=== PATIENT | female | born 1945 | race Asian ===

== ENCOUNTER → 2018-07-24 09:06 | Outpatient (CLI) | payer MEDICARE, OTHER, SELFPAY ==
--- NOTE | 2018-07-24 09:43 | DI.CT.S_ITS ---
PROCEDURE: CT ABDOMEN PELVIS WO/W CON INDICATIONS: Other specified disorders of kidney and ureter TECHNIQUE: Optional 5 mm thick noncontrast images acquired from the diaphragm to the symphysis pubis. After the administration of intravenous contrast, 5 mm thick images acquired from the diaphragm to the symphysis pubis after a 10-minute delay. 2 mm thick coronal and sagittal reformats were then performed of the kidneys and ureters. For radiation dose reduction, the following was used: automated exposure control, adjustment of mA and/or kV according to patient size. COMPARISON: None. FINDINGS: Image quality: Excellent. Lung bases: Lung bases are clear. Heart size is normal. Urinary system: Both kidneys are normal in size, without hydronephrosis or nephrolithiasis on pre-contrast images. No perinephric fat stranding. There is normal bilateral renal enhancement. There are bilateral low density cortical lesions consistent with simple renal cysts. A 3 mm in diameter hyperdense lesion is noted on the noncontrast study within the upper pole the right kidney. There is no appreciable enhancement on the postcontrast images suggesting a hyperdense cyst. A 1.5 cm in diameter hyperdense cyst is also present within the midpole of the left kidney. This demonstrates 39 Hounsfield units on the precontrast study and 40 Hounsfield units on the postcontrast study. Renal calyces appear normal in morphology when filled with contrast. Opacified portions of both ureters demonstrate normal caliber. Bladder wall thickness is normal. No calcified bladder stones. Other solid organs: Liver is normal in size and enhancement. A 6 mm hypodense focus is present within the left hepatic lobe suggesting a simple hepatic cyst. Gallbladder is unremarkable. Biliary system is non dilated. Pancreas enhances normally. Spleen is normal in size and enhancement. No adrenal nodules. Peritoneum and bowel: Bowel loops demonstrate normal wall thickness and caliber. The appendix is thin walled. There are scattered sigmoid diverticula. No evidence for diverticulitis. No free fluid or air. Nodes and vessels: No retroperitoneal or mesenteric adenopathy by size criteria. Aorta and inferior vena cava are normal in size. There are scattered atheromatous calcifications throughout the aorta and iliac arteries bilaterally. Abdominal wall: No ventral hernias. Pelvis: No pathologic free pelvic fluid. No inguinal hernias or adenopathy. Bones: No suspicious bony lesions. No vertebral body compression fractures. IMPRESSION: 1. No hydronephrosis, hydroureter, ureterolithiasis, or nephrolithiasis. Bilateral hyperdense cysts as above. 2. No acute intra-abdominal findings. Normal appendix. Diverticulosis. No acute diverticulitis. Dictated by: Ana Maria Bear M.D. on 07/24/2018 at 11:30 Approved by: Ana Maria Bear M.D. on 07/24/2018 at 11:37
[2018-07-24 09:55] LABS: Blood Urea Nitrogen 12 mg/dL (7-17); Calcium 9.6 mg/dL (8.4-10.2); Carbon Dioxide 29 mmol/L (22-32); Chloride 103 mmol/L (98-107); Estimated Glomerular Filt Rate 54.5 mL/min (>60); Glucose 81 mg/dL (80-110); HEMOLYSIS < 15 (0-50); Potassium 4.5 mmol/L (3.4-5.1); Sodium 141 mmol/L (137-145)
== END ==
PROVIDERS: Visit Provider Urology
DX: N28.89 Other specified disorders of kidney and ureter (principal); K57.30 Diverticulosis of large intestine without perforation or abscess without bleeding; N28.1 Cyst of kidney, acquired
CPT/HCPCS: 36415; 74178; 80048; Q9967

== ENCOUNTER → 2021-01-27 14:28 | Outpatient (CLI) | payer MEDICARE, OTHER, SELFPAY ==
--- NOTE | 2021-01-27 | DI.MRI.S_ITS ---
PROCEDURE: MR LUMBAR SPINE WO CON INDICATIONS: low back pain, unspecified TECHNIQUE: Noncontrast sagittal T1 spin echo and T2 fast echo, sagittal STIR, axial T1 and T2 fast spin echo through the lumbar spine. In cases with scoliosis, additional coronal T2 fast spin echo may be performed. COMPARISON: None. FINDINGS: Image quality: Excellent. Alignment and Curvature: No plain films are available for comparison, for numbering purposes. Thus, for the purposes of this examination, 5 lumbar type vertebral bodies will be presumed, as denoted on the montage panel. This should be confirmed and correlated with plain films, prior to any lumbar spinal intervention. Bone Marrow: Marrow is of normal overall signal. No acute vertebral body compression fractures. Mild reactive signal throughout the endplates of the lumbar and lower thoracic spine. Spinal Cord: Conus medullaris terminates at the L1-L2 disc space level. Visualized cord demonstrates normal signal and size. Paraspinous Soft Tissues: No paravertebral masses. T12-L1: Mild disc height loss and desiccation. Mild diffuse disc bulge. Mild canal stenosis. No foraminal stenosis. L1-L2: Mild disc height loss and desiccation. Mild diffuse disc bulge. Mild facet and ligamentum flavum hypertrophy. Mild canal stenosis. Mild bilateral foraminal stenosis. L2-L3: Mild disc height loss and desiccation. Mild diffuse disc bulge. Mild facet and ligamentum flavum hypertrophy. Mild canal stenosis. Mild bilateral foraminal stenosis. L3-L4: Mild disc desiccation and diffuse disc bulge. Mild facet and ligamentum flavum hypertrophy. Mild epidural lipomatosis. Mild canal stenosis. Mild bilateral foraminal stenosis. L4-L5: Mild disc desiccation and diffuse disc bulge. Mild facet and moderate ligamentum flavum hypertrophy. Moderate canal stenosis. Mild bilateral foraminal stenosis. L5-S1: Moderate disc desiccation. Mild diffuse disc bulge. Mild facet and ligamentum flavum hypertrophy. Mild canal stenosis. Mild bilateral foraminal stenosis. IMPRESSION: 1. Multilevel degenerative disc and facet disease, as well as ligamentum flavum hypertrophy and epidural lipomatosis. 2. Multilevel canal stenoses, worst at L4-L5, where there is moderate canal stenosis. 3. Mild multilevel foraminal stenoses. 4. 5 lumbar type vertebral bodies were presumed for the current report. Plain films of the lumbar spine are recommended for confirmation, prior to any lumbar spinal intervention. Dictated by: Marquis Kang M.D. on 01/27/2021 at 15:54 Approved by: Marquis Kang M.D. on 01/27/2021 at 16:46
== END ==
PROVIDERS: Referring Provider Internal Medicine; Visit Provider Internal Medicine
DX: M51.36 Other intervertebral disc degeneration, lumbar region (principal); M51.37 Other intervertebral disc degeneration, lumbosacral region; M48.061 Spinal stenosis, lumbar region without neurogenic claudication; M48.07 Spinal stenosis, lumbosacral region; M54.50 Low back pain, unspecified
CPT/HCPCS: 72148

== ENCOUNTER → 2021-02-19 07:29 | Outpatient (CLI) | payer MEDICARE, OTHER, SELFPAY ==
--- NOTE | 2021-02-19 07:32 | DI.MRI.S_ITS ---
PROCEDURE: MR CERVICAL SPINE WO CON INDICATIONS: Cervicalgia TECHNIQUE: Noncontrast sagittal T1 spin echo and T2 fast spin echo, sagittal STIR, foraminal oblique sagittal T2 fast spin echo, and axial gradient echo or T2 fast spin echo through the cervical spine. COMPARISON: None. FINDINGS: Image quality: Excellent. Alignment and Curvature: There is normal bony alignment. Bone Marrow: Marrow demonstrates normal overall signal. Spinal Cord: Visualized spinal cord has normal size and signal. No cerebellar tonsillar herniation. Paraspinous Soft Tissues: No paravertebral masses. Prevertebral soft tissues are normal in thickness. C2-C3: Loss of disc signal. No central stenosis. No neural foraminal narrowing. No neural compression. C3-C4: Loss of disc signal. Mild, diffuse disc bulge. No central stenosis. No neural foraminal narrowing. No neural compression. C4-C5: Loss of disc signal. Mild to moderate diffuse disc bulge. Moderate narrowing of the central canal. Moderate right and mild left neural foraminal narrowing. No neural compression. C5-C6: Loss of disc signal. Mild to moderate diffuse disc bulge. Mild right uncovertebral joint hypertrophy. Moderate narrowing of the central canal. Severe right and mild left neural foraminal narrowing with compression of the exiting right C6 nerve root. C6-C7: Loss of disc signal. Mild to moderate diffuse disc bulge. [id number] narrowing of the central canal. No neural foraminal narrowing. No neural compression. C7-T1: Loss of disc signal. No central stenosis. No neural foraminal narrowing. No neural compression. IMPRESSION: 1. Multilevel degenerative disc disease. 2. Right C5-C6 uncovertebral arthropathy. 3. No severe central canal narrowing. 4. Severe right C5-C6 neural foraminal narrowing with compression of the exiting right C6 nerve root. Dictated by: Queenie Argueta MD, PhD on 02/21/2021 at 8:09 Approved by: Queenie Argueta MD, PhD on 02/21/2021 at 10:01
== END ==
PROVIDERS: PCP Internal Medicine; Referring Provider Internal Medicine; Visit Provider Internal Medicine
DX: M50.31 Other cervical disc degeneration, high cervical region (principal); M48.02 Spinal stenosis, cervical region; M47.812 Spondylosis without myelopathy or radiculopathy, cervical region
CPT/HCPCS: 72141

== ENCOUNTER 2022-11-17 07:32 | Emergency (ER) | payer OTHER, SELFPAY ==
[2022-11-17 07:41] VITALS: BP 142/71; PULSE 73; RESP 18; TEMP 37.7; O2SAT 98; BMI 27.8
[2022-11-17 08:33] LABS: Influenza A - CEPHEID Flu A NEGATIVE (NEGATIVE); Influenza B - CEPHEID Flu B NEGATIVE (NEGATIVE); Respiratory Syncytial Virus Negative (Negative)
[2022-11-17 08:34] LABS: COVID-19 CEPHEID 4-PLEX PCR POSITIVE (Negative)
--- NOTE | 2022-11-17 09:04 | ED_ITS ---
HPI - URI/Sore Throat General Chief Complaint: Upper Respiratory Symptoms Stated Complaint: T-3 cough/Lt arm hurt Time Seen by Provider: 11/17/22 08:55 Source: patient Mode of arrival: Family Vehicle History of Present Illness HPI Narrative: Patient here for dry cough for the past 3 days. No known sick contacts. Patient denies any previous lung diseases. No asthma no COPD emphysema. Patient does not smoke. No fever chills but does have body aches. Also complains 3 months of neck pain that radiates to the left elbow. No weakness. Pain radiates to the chest as well. No exertional chest pain or dyspnea. Increased pain with rotating her neck. It does radiate to the left elbow. No hand numbness tingling or weakness. Patient denies any previous neck surgery or MRI. [place]. Denies any shoulder or elbow pain. Related Data Previous Rx's Medication Instructions Recorded benzonatate 100 mg capsule 100 mg PO TID PRN cough #20 caps 11/17/22 Allergies Allergy/AdvReac Type Severity Reaction Status Date / Time No Known Drug Allergies Allergy Verified 11/17/22 07:44 Review of Systems Review of Systems Narrative: GENERAL: negative chills, positive fatigue, malaise, negative fever, sweats. HEENT: negative sinus pain, ear pain, sore throat RESPIRATORY: negative dyspnea, positive cough CARDIOVASCULAR: negative chest pain, palpitations GASTROINTESTINAL: negative nausea, vomiting, abdominal pain : negative dysuria, frequency, hematuria MUSCULOSKELETAL: Positive muscle or bony pain SKIN: negative rash, skin lesions NEUROLOGIC: negative weakness, positive numbness ROS Unobtainable: All systems reviewed & are unremarkable except as noted in HPI and below Patient History Social History Smoking Status: Never smoker Smoking Status: Never smoker alcohol intake frequency: 0-2 drinks per day Substance Use Type: does not use Exam Narrative Exam Narrative: GENERAL: in no distress, not toxic not dyspneic HEAD: Normocephalic. EYES: Pupils equal round ENT: Mucous membranes moist. NECK: Trachea midline. No midline tenderness or step-off. But when patient gives a cough hurts her neck and it radiates down her left arm. Full active range of motion. CARDIOVASCULAR: Regular rate and rhythm RESPIRATORY: Clear to auscultation. Breath sounds equal bilaterally. No wheezes, rales, or rhonchi. GASTROINTESTINAL: Abdomen soft, non-tender EXTREMITIES: No gross deformities. Examination left upper extremity. Nontender elbow shoulder wrist. 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 Able to bring her hand above her head fully without distress. When she does give a hard cough hurts her neck and does radiate down her left arm. Does not extend past the elbow. Arm is warm soft and pink. BACK: No flank tenderness. NEURO: AOx4. SKIN: Warm and dry PSYCH: Not anxious, is cooperative Initial Vital Signs Initial Vital Signs: Vital Signs Temperature 99.9 F H 11/17/22 07:41 Pulse Rate 73 11/17/22 07:41 Respiratory Rate 18 11/17/22 07:41 Blood Pressure 142/71 H 11/17/22 07:41 Pulse Oximetry 98 11/17/22 07:41 Oxygen Delivery Method Room Air 11/17/22 07:41 Course Orders Ordered: Discontinued Medications Benzonatate (Benzonatate 100 Mg Capsule) 100 mg PO NOW ONE Stop: 11/17/22 09:05 Last Admin: 11/17/22 09:25 Dose: 100 mg Documented By: AMV Vital Signs Vital signs: Vital Signs - 8 hr 11/17/22 07:41 Temperature 99.9 F H Pulse Rate 73 Respiratory Rate 18 Blood Pressure 142/71 H Pulse Oximetry 98 Oxygen Delivery Method Room Air MDM - URI/Sore Throat Lab Data Labs: Lab Results 11/17/22 Range/Units 07:45 SARS-CoV-2 (PCR) Positive H (Negative) Influenza A (RT-PCR) Flu a negative (NEGATIVE) Influenza B (RT-PCR) Flu b negative (NEGATIVE) RSV (PCR) Negative (Negative) MDM Narrative Medical decision making narrative: Patient here for dry cough for the past 3 days. No known sick contacts. Patient denies any previous lung diseases. No asthma no COPD emphysema. Patient does not smoke. No fever chills but does have body aches. Also complains 3 months of neck pain that radiates to the left elbow. No weakness. Pain radiates to the chest as well. No exertional chest pain or dyspnea. Increased pain with rotating her neck. It does radiate to the left elbow. No hand numbness tingling or weakness. Patient denies any previous neck surgery or MRI. [place]. Denies any shoulder or elbow pain. After history and exam Itzel Saenz, x-ray blood work indicated at this time. Patient is positive for COVID on viral swab. No imaging of the neck or arm indicated this time. This ongoing 3 months prior to patient's recent illness and needs outpatient follow up for MRI of cervical spine likely cervical radiculopathy. MDM CC: Cough Complicating co-morbidities: None Data collected from: Patient Medical records reviewed: No recent visit for this complaint Differential considered: Includes but not limited to upper respiratory infection cervical radiculopathy Exam documented above, pertinent findings include: Clear lung sounds, reproducible neck pain with hard coughing that radiates to the left arm Lab Test results independently reviewed as above. Pertinent findings: COVID positive Treatments: Itzel Cole Re-evaluations: Reviewed exam findings with patient. At this time no blood work or imaging indicated. Patient needs outpatient MRI cervical spine. This is ongoing before patient's recent illness. She does understand. Return precautions reviewed with her. She desires discharge home Discussion: Appropriate for discharge home. Exam is reassuring. No blood work or imaging indicated. Vital signs are reassuring. No dyspnea no hypoxia no tachypnea not requiring supplemental oxygen. No medications indicated for COVID. Patient needs outpatient MRI of the cervical spine given ongoing radiculopathy symptoms. Reviewed this with her. She agrees with treatment plan. Return precautions reviewed with her. She desires discharge home. Not t oxic or dyspneic at discharge. Diagnosis: Cervical radiculopathy/COVID-19 bronchitis Discharge Plan Departure Patient Disposition: Home Clinical Impression: COVID-19, Bronchitis Instructions: DI for Cervical Radiculopathy, DI for COVID-19 (Suspected or Confirmed ) Activity Restrictions/Additional Instructions: Please continue quarantine total 5 days from 1st day of your symptoms. See family doctor in a week for re-evaluation. You will need MRI of your cervical spine regarding your neck pain that radiates to your left arm. Cough medication has been provided for you. At this time no x-ray blood work indicated. Your lung sounds are clear. Your oxygen levels are appropriate. Return if worse if any questions or concerns. Prescriptions: New benzonatate 100 mg capsule 100 mg PO TID PRN (Reason: cough) Qty: 20 0RF Referrals: Mary Powell MD [Primary Care Provider] - Stand Alone Forms: Patient Portal/API
[2022-11-17] MEDS: BENZONATATE 100 MG CAPSULE PO (09:25)
== END 2022-11-17 09:30 | disposition home or self-care (01) ==
PROVIDERS: Emergency Provider Emergency Medicine; PCP Internal Medicine
DX: U07.1 COVID-19 (principal); J40 Bronchitis, not specified as acute or chronic
CPT/HCPCS: 0241U; 99283

== ENCOUNTER → 2023-04-26 10:15 | Outpatient (CLI) | payer MEDICARE, OTHER, SELFPAY ==
--- NOTE | 2023-04-26 10:18 | DI.MRI.S_ITS ---
PROCEDURE: MR SHOULDER LT WO CON INDICATIONS: Pain in left shoulder TECHNIQUE: Noncontrast oblique coronal T2 fast spin echo with fat saturation, oblique sagittal T1 spin echo and T2 fast spin echo with fat saturation, axial T1 spin echo and T2 fast spin echo with fat saturation through the shoulder. COMPARISON: None. FINDINGS: Image quality: Excellent. Rotator cuff: Full-thickness tearing of the supraspinatus tendon and the anterior fibers of the infraspinatus tendon at their distal insertions measuring 1.6 cm in anterior-posterior dimension with proximal tendon retraction measuring up to 2.9 cm. There is mild loss of supraspinatus muscle bulk without significant fatty infiltration. Infraspinatus muscle appears to be intact. The teres minor tendon is intact. There is full-thickness, partial width tearing of the subscapularis tendon superiorly with proximal tendon retraction measuring up to 1.6 cm. No significant subscapularis atrophy. Bones and bursae: No acute trabecular bone injury or fracture. Chronic traction cystic changes are seen at the posterior superior humeral head. There is mild degenerative spurring in the glenoid rim. Moderate degenerative changes are seen at the acromioclavicular joint with subchondral cystic changes and marginal osteophyte formation. A small amount of fluid in the subacromial/subdeltoid bursa communicates with the glenohumeral joint space. Capsule and soft tissues: There is diffuse labral degeneration and chronic degenerative tearing. Proximal biceps long head tendon is not visualized and is most likely chronically torn and distally retracted. Glenohumeral ligaments appear to be intact. IMPRESSION: 1. Full-thickness tearing of the supraspinatus tendon and the anterior fibers infraspinatus tendon measuring 1.6 cm in anterior-posterior dimension with up to 2.9 cm of proximal tendon retraction. Mild supraspinatus muscle atrophy. 2. Full-thickness, partial width tearing of the subscapularis tendon at the superior insertion with proximal tendon retraction measuring up to 1.6 cm. 3. Complete tearing and distal retraction of the biceps long head tendon. 4. Moderate acromioclavicular joint osteoarthrosis. 5. Small subacromial/subdeltoid bursal effusion communicates with the glenohumeral joint space. Approved by: Crispin Salinas M.D. on 04/26/2023 at 16:33
== END ==
PROVIDERS: PCP Internal Medicine; Referring Provider Nurse Practitioner Family; Visit Provider Nurse Practitioner Family
DX: M75.122 Complete rotator cuff tear or rupture of left shoulder, not specified as traumatic (principal); S46.112A Strain of muscle, fascia and tendon of long head of biceps, left arm, initial encounter; M25.512 Pain in left shoulder; M19.012 Primary osteoarthritis, left shoulder; M25.412 Effusion, left shoulder
CPT/HCPCS: 73221

== ENCOUNTER → 2023-05-04 14:04 | Outpatient (CLI) | payer MEDICARE, OTHER, SELFPAY ==
--- NOTE | 2023-05-04 14:07 | DI.RAD.S_ITS ---
Bone Density Report Name: MARY GRIJALVA Age: 77 Sex: Female Ethnicity: Marsha Date of : 1945 Indication: postmenopausal; screening for osteoporosis; Referring Provider: MARSHALL NGUYEN Study: Bone densitometry was performed. Exam Date: May 04, 2023 Accession number: [id number] Bone Density: Region BMD T-score Z-score Classification AP Spine(L1-L4) 0.832 -2.0 0.6 Osteopenia Femoral Neck (Left) 0.516 -3.0 -0.8 Osteoporosis Total Hip (Left) 0.650 -2.4 -0.5 Osteopenia Femoral Neck (Right) 0.559 -2.6 -0.4 Osteoporosis Total Hip (Right) 0.679 -2.2 -0.2 Osteopenia Total Hip Mean 0.664 -2.3 -0.4 Osteopenia World Health Organization criteria for BMD impression classify patients as: Normal (T-score at or above -1.0), Osteopenia (T-score between -1.0 and -2.5), or Osteoporosis (T-score at or below -2.5). 10-year Fracture Risk: FRAX not reported because: Some T-score for Spine Total or Hip Total or Femoral Neck at or below -2.5 Impression: The patient has osteoporosis, based on the Left Femoral Neck T-score. Discussion: INCREASED RISK OF FRACTURE. BONE DENSITY IS UNDESIRABLY LOW AT ONE OR MORE SKELETAL SITES, CONSISTENT WITH POSTMENOPAUSAL OSTEOPOROSIS. This patient's lowest T-score meets the World Health Organization's (WHO) criteria for osteoporosis at one or more sites (T-score -2.5 or below). In untreated patients, the risk of osteoporotic fracture increases approximately two-fold for each 1.0 SD decrease in T-score. Low bone density is not the only risk factor for fracture; also consider factors such as patient's age, frailty or poor health, risk of falling, risk of injury, previous osteoporotic fracture, family history of osteoporosis, cigarette smoking, low body weight, etc. Not everyone with low bone mineral density has osteoporosis; osteomalacia and other metabolic bone disorders should also be considered. Patients who have osteoporosis should be evaluated for specific diseases and conditions (secondary causes) that may cause or contribute to bone loss. The [place] [employer]ocrinologists (AACE) and National Osteoporosis Foundation (NOF) recommend pharmacologic intervention for all postmenopausal women whose T-score is in this range. The patient should follow a healthful lifestyle (good nutrition with adequate calcium and vitamin D, and appropriate weight-bearing exercise). Follow-Up: Consider a repeat BMD and Vertebral Fracture Assessment (VFA) exam in 2 years or sooner if medically necessary, to reassess this patient's status. Reported by: LORELEI MOORE M.D. on 05/04/2023 3:58:00 PM.
== END ==
PROVIDERS: PCP Internal Medicine; Referring Provider Nurse Practitioner Family; Visit Provider Nurse Practitioner Family
DX: M81.0 Age-related osteoporosis without current pathological fracture (principal); Z13.820 Encounter for screening for osteoporosis; Z78.0 Asymptomatic menopausal state
CPT/HCPCS: 77080

== ENCOUNTER 2023-10-12 08:58 | Emergency (ER) | payer MEDICARE, OTHER, SELFPAY ==
[2023-10-12 09:04] VITALS: BP 154/77; PULSE 78; RESP 16; TEMP 36.9; O2SAT 98; BMI 29.2
--- NOTE | 2023-10-12 09:09 | DI.RAD.S_ITS ---
PROCEDURE: XR ELBOW RT MIN 3V INDICATIONS: fall pain and swelling in elbow TECHNIQUE: 3 views of the elbow were acquired. COMPARISON: None. FINDINGS: Bones: No fractures or dislocations. No suspicious bony lesions. Soft tissues: Small elbow joint effusion. No suspicious soft tissue calcifications. IMPRESSION: No definite fracture is seen. A small joint effusion is seen raising concern for an occult fracture. Recommend short-term follow-up radiograph. Dictated by: Marvin Perez M.D. on 10/12/2023 at 10:24 Approved by: Marvin Perez M.D. on 10/12/2023 at 10:25
--- NOTE | 2023-10-12 09:10 | DI.RAD.S_ITS ---
PROCEDURE: XR RIBS RT MIN 3V W CXR 1V INDICATIONS: fall with pain to R ribs TECHNIQUE: 2 views of the ribs were acquired, along with a single view chest. COMPARISON: None. FINDINGS: Surgical changes and devices: None. Bones and chest wall: No fractures or dislocations. No suspicious bony lesions. Overlying soft tissues appear unremarkable. Lungs and pleura: No pleural effusions or pneumothorax. Lungs appear clear. Mediastinum: Mediastinal contours appear normal. Heart size is normal. IMPRESSION: No displaced rib fracture or pneumothorax. Dictated by: Marvin Perez M.D. on 10/12/2023 at 10:25 Approved by: Marvin Perez M.D. on 10/12/2023 at 10:28
--- NOTE | 2023-10-12 09:36 | DI.RAD.S_ITS ---
PROCEDURE: XR KNEE RT 3V INDICATIONS: fall,knee and foot pain TECHNIQUE: 3 views of the knee were acquired. COMPARISON: None. FINDINGS: Bones: No fractures or dislocations. Osteoarthritic changes of the knee, severe involving the medial and patellofemoral compartments. No suspicious bony lesions. Soft tissues: No joint effusion. No suspicious soft tissue calcifications. IMPRESSION: No acute bony abnormality or significant effusion. Severe osteoarthritic changes of the knee. Dictated by: Marvin Perez M.D. on 10/12/2023 at 10:58 Approved by: Marvin Perez M.D. on 10/12/2023 at 10:59
--- NOTE | 2023-10-12 09:36 | DI.RAD.S_ITS ---
PROCEDURE: XR FOOT RT MIN 3V INDICATIONS: fall,knee and foot pain TECHNIQUE: 3 views of the foot were acquired. COMPARISON: None. FINDINGS: Bones: No fractures or dislocations. Mild diffuse interphalangeal joint degeneration. Mild posterior and plantar calcaneal enthesophytes. No suspicious bony lesions. Soft tissues: No tibiotalar joint effusion. Achilles tendon appears normal. IMPRESSION: No acute bony abnormality. Dictated by: Marvin Perez M.D. on 10/12/2023 at 10:51 Approved by: Marvin Perez M.D. on 10/12/2023 at 10:58
[2023-10-12 09:54] VITALS: PULSE 66; O2SAT 98
[2023-10-12 09:55] VITALS: BP 149/72; PULSE 61; O2SAT 99
[2023-10-12 10:00] VITALS: PULSE 60; RESP 17; O2SAT 99
--- NOTE | 2023-10-12 10:57 | ED.FALL ---
HPI - Fall General Chief Complaint: Fall Stated Complaint: fall t-1, back/l side pain, L knee/toe swelling Time Seen by Provider: 10/12/23 10:38 History of Present Illness HPI Narrative: Patient is a 78-year-old female history of hypertension hyperlipidemia presenting today with ground level fall yesterday. She reports that she tripped and fell landing mostly on her right side. She was trying to protect her left side she had a mammogram the other day she has getting a cardiac workup as an outpatient. She denies any sort of chest pain or palpitations. Complaining of all right-sided pain and injuries. She denies hitting her head or lose consciousness not on antiplatelet or anticoagulation medication. She complains of right rib pain, elbow pain, knee pain, foot pain. She has also been to the restroom twice in the last 1 hour. She denies painful frequent urination although she does have some urinary frequency she denies any fever chills or abdominal pain. Related Data Previous Rx's Medication Instructions Recorded benzonatate 100 mg capsule 100 mg PO TID PRN cough #20 caps 11/17/22 hydrocodone 5 mg-acetaminophen 325 1 tab PO Q6H PRN pain #10 tabs 10/12/23 mg tablet Allergies Allergy/AdvReac Type Severity Reaction Status Date / Time No Known Drug Allergies Allergy Verified 11/17/22 07:44 Patient History Social History Smoking Status: Never smoker Smoking Status: Never smoker alcohol intake frequency: 0-2 drinks per day Substance Use Type: does not use Exam Initial Vital Signs Initial Vital Signs: Vital Signs Temperature 98.4 F 10/12/23 09:04 Pulse Rate 78 10/12/23 09:04 Respiratory Rate 16 10/12/23 09:04 Blood Pressure 154/77 H 10/12/23 09:04 Pulse Oximetry 98 10/12/23 09:04 Oxygen Delivery Method Room Air 10/12/23 09:04 GENERAL: Alert pleasant well-appearing 70-year-old female and in no acute distress. HEENT: Head atraumatic,EOMI, pupils reactive, face symmetric, moist mucous membranes CARDIOVASCULAR: Regular rate and rhythm without murmurs, rubs or gallops. RESPIRATORY: Breath sounds equal bilaterally, no wheezes rales or rhonchi. ABDOMEN: Soft, nontender. Normoactive bowel sounds all 4 quadrants. No guarding or rebound. EXTREMITIES: Normal range of motion, no clubbing or edema. Neurovascularly intact Right big toe significant contusion distal pedal pulse intact knee is stable able to flex and extend hip is nontender good flexion and extension able to flex and extend elbow completely good supination pronation distal radial pulse intact NEUROLOGICAL: Alert and oriented x4.Normal gait and speech. SKIN: Warm, dry, no laceration, no petechiae, no rashes or lesions. Course Orders Ordered: ED Orders 10/12/23 09:09 XR elbow RT min 3V Stat 10/12/23 09:10 XR ribs RT min 3V w CXR1V Stat 10/12/23 09:36 XR foot RT min 3V Stat XR knee RT 3V Stat Vital Signs Vital signs: Vital Signs - 8 hr 10/12/23 09:04 10/12/23 09:54 10/12/23 09:55 Temperature 98.4 F Pulse Rate 78 66 Respiratory Rate 16 Blood Pressure 154/77 H 149/72 H Pulse Oximetry 98 98 Oxygen Delivery Method Room Air 10/12/23 09:55 10/12/23 10:00 10/12/23 11:13 Temperature Pulse Rate 61 60 62 Respiratory Rate 17 Blood Pressure Pulse Oximetry 99 99 96 Oxygen Delivery Method 10/12/23 11:16 10/12/23 11:16 Temperature Pulse Rate 62 Respiratory Rate Blood Pressure 175/84 H Pulse Oximetry 99 Oxygen Delivery Method MDM - Fall Lab Data Labs: Urine Dip Bedside Urine Glucose Negative Bedside Urine Bilirubin - Negative Bedside Urine Ketone - Negative Urine Specific [place] 1.005 Bedside Urine Occult Blood - Negative Bedside Urine pH 6.5 Bedside Urine Protein - Negative Bedside Urine Urobilinogen - Negative Bedside Urine Nitrite - Negative Bedside Urine Leukocytes - Negative Esterase Imaging Data Extremity x-ray #1: Radiologist's Impression: PROCEDURE: XR ELBOW RT MIN 3V INDICATIONS: fall pain and swelling in elbow TECHNIQUE: 3 views of the elbow were acquired. COMPARISON: None. FINDINGS: Bones: No fractures or dislocations. No suspicious bony lesions. Soft tissues: Small elbow joint effusion. No suspicious soft tissue calcifications. IMPRESSION: No definite fracture is seen. A small joint effusion is seen raising concern for an occult fracture. Recommend short-term follow-up radiograph. Dictated by: Marvin Perez M.D. on 10/12/2023 at 10:24 Chest x-ray: Radiologist's Impression: PROCEDURE: XR RIBS RT MIN 3V W CXR 1V INDICATIONS: fall with pain to R ribs TECHNIQUE: 2 views of the ribs were acquired, along with a single view chest. COMPARISON: None. FINDINGS: Surgical changes and devices: None. Bones and chest wall: No fractures or dislocations. No suspicious bony lesions. Overlying soft tissues appear unremarkable. Lungs and pleura: No pleural effusions or pneumothorax. Lungs appear clear. Mediastinum: Mediastinal contours appear normal. Heart size is normal. IMPRESSION: No displaced rib fracture or pneumothorax. Dictated by: Marvin Preez M.D. on 10/12/2023 at 10:25 Extremity x-ray #2: Radiologist's Impression: PROCEDURE: XR FOOT RT MIN 3V INDICATIONS: fall,knee and foot pain TECHNIQUE: 3 views of the foot were acquired. COMPARISON: None. FINDINGS: Bones: No fractures or dislocations. Mild diffuse interphalangeal joint degeneration. Mild posterior and plantar calcaneal enthesophytes. No suspicious bony lesions. Soft tissues: No tibiotalar joint effusion. Achilles tendon appears normal. IMPRESSION: No acute bony abnormality. Dictated by: Marvin Perez M.D. on 10/12/2023 at 10:51 Extremity x-ray #3: Radiologist's Impression: PROCEDURE: XR KNEE RT 3V INDICATIONS: fall,knee and foot pain TECHNIQUE: 3 views of the knee were acquired. COMPARISON: None. FINDINGS: Bones: No fractures or dislocations. Osteoarthritic changes of the knee, severe involving the medial and patellofemoral compartments. No suspicious bony lesions. Soft tissues: No joint effusion. No suspicious soft tissue calcifications. IMPRESSION: No acute bony abnormality or significant effusion. Severe osteoarthritic changes of the knee. Dictated by: Marvin Perez M.D. on 10/12/2023 at 10:58 Approved by: Marvin Perez M.D. on 10/12/2023 at 10:59 [facility] Narrative Medical decision making narrative: Patient is a 78-year-old female with history of ground level fall mostly on her right side. It like she is some sort of something going on in her left side possibly cardiac sounds like maybe an outpatient stress test but she denies any sort of chest pain or palpitations before she fell or after she fell. Really just complaining of even some right-sided breast pain elbow pain knee pain foot pain. She does have an obvious contusion of her right great toe but all x-rays have been reviewed and negative. There is no significant contusion noted on her chest on the right side. She is given Tylenol here in the ED but wants something more for pain discussed with her [place], which she is open to Discharge Plan Departure Patient Disposition: Home Clinical Impression: Contusion of great toe Instructions: Contusion, How to Prevent Falls Activity Restrictions/Additional Instructions: *You have been diagnosed with right toe contusion *What to do: Fortunately all x-rays are negative. No broken bone. Elevate and ice 20-30 minutes at a time Where orthopedic shoe as needed may take off *Continue to take medications as directed Tylenol 650 mg every 4-6 hours if needed for pain [place] 1 tablet every 6 hours only if needed for severe pain *Follow up with your primary care provider in 2-3 days or call [phone] *Return to ER if you should have increasing numbness pain or any new, worsening or concerning symptoms CONTROLLED SUBSTANCE DISCHARGE (Narcotoic/benzodiazepine/Flexeril/Phenergan) 1. You have been prescribed narcotic medications, it does have acetaminophen/Tylenol/paracetamol in it, DO NOT TAKE MORE THAN 4,00mg in 24 hours of Tylenol. TRAMADOL DOES NOT CONTAIN TYLENOL 2. Please understand that we cannot provide further refills of narcotics, benzodiazepines or controlled substances through the ED and her pain management will need to be through your provider. 3. While on these medications you cannot drive or operate heavy machinery. 4. You cannot sign legal documents or perform any duties such as this. 5. As long as you're taking opiate pain medications he should also be taking a stool softener such as Colace, Dulcolax, MiraLAX or prune juice, to help avoid constipation. Prescriptions: New hydrocodone-acetaminophen 5-325 mg tablet 1 tab PO Q6H PRN (Reason: pain) Qty: 10 0RF No Action benzonatate 100 mg capsule 100 mg PO TID PRN (Reason: cough) Qty: 20 0RF Referrals: Mary Powell MD [Primary Care Provider] - Stand Alone Forms: Patient Portal/API
[2023-10-12 11:13] VITALS: PULSE 62; O2SAT 96
[2023-10-12 11:16] VITALS: BP 175/84; PULSE 62; O2SAT 99
== END 2023-10-12 11:27 | disposition home or self-care (01) ==
PROVIDERS: Emergency Provider Emergency Medicine; PCP Internal Medicine
DX: S90.112A Contusion of left great toe without damage to nail, initial encounter (principal); M25.561 Pain in right knee; M25.521 Pain in right elbow; R07.81 Pleurodynia; W01.0XXA Fall on same level from slipping, tripping and stumbling without subsequent striking against object, initial encounter
CPT/HCPCS: 71101; 73080; 73562; 73630; 81003; 99282; 99283

== ENCOUNTER → 2024-01-31 10:22 | Outpatient (CLI) | payer MEDICARE, OTHER, SELFPAY ==
--- NOTE | 2024-01-31 10:24 | DI.RAD.S_ITS ---
PROCEDURE: XR DEXA AXIAL SKELETON INDICATIONS: age related osteoporosis COMPARISON: [facility], CR, XR DEXA AXIAL SKELETON, 05/04/2023, 14:47. FINDINGS: Lumbar Spine: Bone mineral density 0.823 g/cm2, T score -2.0, no statistically significant change compared to prior. Left Hip: Bone mineral density 0.684 g/cm2, T score -2.1, increased compared to prior by 5.2%. Left Femoral Neck: Bone mineral density 0.531 g/cm2, T score -2.9. Right Hip: Bone mineral density 0.675 g/cm2, T score -2.2, no statistically significant change compared to prior. Right Femoral Neck: Bone mineral density 0.553 g/cm2, T score -2.7. Fracture Risk Calculation (when applicable): 10-year fracture risk of a major osteoporotic fracture 20 percent and of a hip fracture 7.4 percent. (T score greater or equal to -1.0 to: NORMAL) (T score from -1.1 to -2.4: OSTEOPENIA) (T score less than or equal to -2.5: OSTEOPOROSIS) IMPRESSION: Osteoporosis by WHO classification. Follow-up guidelines as follows: Osteoporosis: Consider a repeat DEXA and Vertebral Fracture Assessment (VFA) exam in 2 years or sooner if medically necessary, to reassess this patient's status. Osteopenia: Consider a repeat DEXA in 2-3 years to reassess this patient's status, or if there is a new clinical indication. Normal: Consider a repeat DEXA in 5 years or sooner, or if there is a new clinical indication. All treatment decisions require clinical judgment and consideration of individual patient factors, including patient preferences, comorbidities, previous drug use, risk factors not captured in the FRAX model (e.g., frailty, falls, vitamin D deficiency, increased bone turnover, interval significant decline in bone density ) and possible under- or over-estimation of fracture risk by FRAX. In addition, the NOF Guide recommends that FDA-approved medical therapies be considered in postmenopausal women and men age >= 50 years with a: * Hip or vertebral (clinical or morphometric) fracture * T-score of <=-2.5 at the spine or hip * Ten-year fracture probability by FRAX of >= 3% for hip fracture or >=20% for major osteoporotic fracture. People with diagnosed cases of osteoporosis or at high risk for fracture should have regular bone mineral density tests. For patients eligible for Medicare, routine testing is allowed once every 2 years. The testing frequency can be increased to one year for patients who have rapidly progressing disease, those who are receiving or discontinuing medical therapy to restore bone mass, or have additional risk factors. Dictated by: Marvin Perez M.D. on 01/31/2024 at 14:25 Approved by: Marvin Perez M.D. on 01/31/2024 at 14:29
--- NOTE | 2024-01-31 10:24 | DI.MRI.S_ITS ---
PROCEDURE: MR HEAD/BRAIN WO/W CON INDICATIONS: headaches TECHNIQUE: Noncontrast axial T1 spin echo, axial T2 fast spin echo, sagittal and axial FLAIR, coronal T2 fast spin echo, axial gradient echo, axial diffusion and ADC through the brain. After the administration of contrast, axial and coronal and sagittal T1 spin echo with fat saturation through the brain. COMPARISON: None. FINDINGS: Image quality: Excellent. CSF spaces: Basal cisterns are patent. No extra-axial fluid collections. Ventricles are normal in size and shape. Brain: No midline shift. No intracranial bleeds or masses. No abnormal intracranial enhancement. There is cerebral volume loss for age. There is periventricular white matter chronic small vessel ischemic change. The brainstem appears normal. Diffusion-weighted images demonstrate no acute infarct. No chronic ischemic insults. Normal intravascular flow voids are present. Skull and face: Calvarial marrow is normal in signal. Orbits appear normal. Note is made of bilateral lens replacements. Sinuses: Sinuses and mastoids appear clear. IMPRESSION: Unremarkable intracranial study, without an imaging explanation found for the patient's presenting history of headache. No masses or abnormal enhancement can be seen. Dictated by: Geovanny Santillan M.D. on 01/31/2024 at 10:40 Approved by: Geovanny Santillan M.D. on 01/31/2024 at 10:41
== END ==
PROVIDERS: PCP Internal Medicine; Referring Provider Family Medicine; Visit Provider Family Medicine
DX: M81.0 Age-related osteoporosis without current pathological fracture (principal); R51.9 Headache, unspecified
CPT/HCPCS: 70553; 77080; A9579

== ENCOUNTER 2025-02-21 14:41 | Emergency (ER) | payer MEDICARE, OTHER, SELFPAY ==
[2025-02-21 14:51] VITALS: BP 146/75; PULSE 61; RESP 18; TEMP 36.2; O2SAT 100; BMI 29.2
[2025-02-21 16:30] LABS: Add Manual Diff / Slide Review NO; Hematocrit 40.5 % (36-46); Hemoglobin 13.7 g/dL (12.0-16.0); Lymphocytes Absolute Auto 1800 /uL (1100-4500); Mean Corpuscular HGB Conc 33.8 % (30-36); Mean Corpuscular Hemoglobin 31.7 PG (26-34); Mean Corpuscular Volume 93.8 fL (80-100); Platelet Count 226 X10^3/uL (150-400)
[2025-02-21 16:42] LABS: Blood Urea Nitrogen 14 mg/dL (7-17); Calcium 9.0 mg/dL (8.4-10.2); Carbon Dioxide 25 mmol/L (22-32); Chloride 101 mmol/L (98-107); Estimated Glomerular Filt Rate 54 mL/min (>60); Glucose 100 mg/dL (70-99); HEMOLYSIS < 15 (0-50); Potassium 4.3 mmol/L (3.4-5.1); Sodium 136 mmol/L (137-145)
--- NOTE | 2025-02-21 22:24 | ED.EXTPRO ---
HPI - Extremity Problem General Chief complaint: Extremity Problem,Nontraumatic Stated complaint: Muscle cramps feet to knees Time Seen by Provider: 02/21/25 18:36 History of Present Illness HPI Narrative: 79-year-old female complains of foot pain in the bottom of her foot for months, apparently has allergic reaction to Tylenol, can not take NSAIDs due to kidney problems, was not wearing any orthotics of any kind, awaiting follow up appointment in about 1 month with her primary care doctor. Wants to have some kind of relief for her foot pain. Not necessarily worse in the mornings. No skin lesions. No fevers or chills. No calf pain or swelling. Related Data Previous Rx's ?Medication ?Instructions ?Recorded benzonatate 100 mg capsule 100 mg PO TID PRN cough #20 caps 11/17/22 hydrocodone 5 mg-acetaminophen 325 1 tab PO Q6H PRN pain #10 tabs 10/12/23 mg tablet Allergies Allergy/AdvReac Type Severity Reaction Status Date / Time No Known Drug Allergies Allergy Verified 02/21/25 14:51 Patient History alcohol intake frequency: 0-2 drinks per day Exam Narrative Exam Narrative: GENERAL: Well-developed patient, in mild distress. HEAD: Atraumatic. Normocephalic. EYES: Pupils equal round and reactive. Extraocular motions intact. No scleral icterus. No injection or drainage. ENT: Nose without bleeding, purulent drainage. Throat without erythema, tonsillar hypertrophy or exudate. Airway patent. NECK: Trachea midline. Non tender CARDIOVASCULAR: Regular rate and rhythm without murmurs, gallops, or rubs. RESPIRATORY: Clear to auscultation. Breath sounds equal bilaterally. No wheezes, rales, or rhonchi. GASTROINTESTINAL: Abdomen soft, non-tender, nondistended. EXTREMITIES: Feet and ankles and forelegs without obvious swelling, no athlete's foot or other skin changes noted, points to plantar aspect of both feet as area of discomfort, not particularly tender, no obvious swelling. Good cap refill toes, DP pulses seem equal and symmetrical and palpable. BACK: Nontender without deformity or crepitance. No flank tenderness. NEURO: AOx3. Motor functions grossly nonfocal. SKIN: No rash or erythema of visible areas Initial Vital Signs Initial Vital Signs: Vital Signs Temperature 97.1 F L 02/21/25 14:51 Pulse Rate 61 12/13/25 14:51 Respiratory Rate 18 02/21/25 14:51 Blood Pressure 146/75 H 02/21/25 14:51 Pulse Oximetry 100 02/21/25 14:51 Oxygen Delivery Method Room Air 02/21/25 14:51 Course Orders Ordered: ED Orders 02/21/25 16:13 BMP [Basic Metabolic Panel] Stat CBC Auto Diff [Complete Blood Count AUTO DIFF] Stat Vital Signs Vital signs: Vital Signs - 8 hr 02/21/25 22:51 Pulse Rate 60 Respiratory Rate 16 Blood Pressure 142/75 H Pulse Oximetry 100 Oxygen Delivery Method Room Air MDM - Extremity (Nontraumatic) Lab Data 02/21/25 16:13 02/21/25 16:13 Labs: Lab Results 02/21/25 Range/Units 16:13 WBC 6.0 (4.5-11.0) X10^3/uL RBC 4.32 (4.0-5.2) X10^6/uL Hgb 13.7 (12.0-16.0) g/dL Hct 40.5 (36-46) % MCV 93.8 (80-100) fL MCH 31.7 (26-34) PG MCHC 33.8 (30-36) % RDW 13.4 (11.6-14.8) % Plt Count 226 (150-400) X10^3/uL Neut % (Auto) 59.4 (50-75) % Lymph % (Auto) 31.1 (25-40) % [place] % (Auto) 6.8 (3-14) % Eos % (Auto) 2.0 (2-4) % Baso % (Auto) 0.7 (0-2) % Neut # (Auto) 3500 (0514-8065) /uL Lymph # (Auto) 1800 (8727-7647) /uL [place] # (Auto) 400 (0-900) /uL Eos # (Auto) 100 (0-450) /uL Baso # (Auto) 0 (0-100) /uL Sodium 136 L (137-145) mmol/L Potassium 4.3 (3.4-5.1) mmol/L Chloride 101 (98-107) mmol/L Carbon Dioxide 25 (22-32) mmol/L BUN 14 (7-17) mg/dL Creatinine 1.05 H (0.52-1.04) mg/dL Estimated GFR 54 L (>60) mL/min BUN/Creatinine Ratio 13.3 (6-22) Glucose 100 H (70-99) mg/dL Calcium 9.0 (8.4-10.2) mg/dL [facility] Narrative Medical decision making narrative: 79-year-old female reports muscle cramping problems to both legs, but points to her bilateral plantar mid foot area. No heel pain, no skin changes tinea pedis or cellulitis or foreign body or acute fractures. No redness or swelling to toes. Plantar bilateral foot pain suspicious for plantar fasciitis by history and exam. She had various medication issues, no response to current tramadol, reported swelling she gets from acetaminophen, has kidney problems and avoids NSAIDs. Am reluctant to prescribe more potent opiate medication for this ongoing chronic problem. Advised for now local measures such as icing, stretching of the Achilles, stretching of the feet, use of [id number] insert orthotics, in consideration for Podiatry referral in follow up. She seemed amenable to this approach. Discharged home. Discharge Plan Departure Patient Disposition: Home Clinical Impression: Foot pain, bilateral Instructions: DI for Plantar Fasciitis Activity Restrictions/Additional Instructions: Bilateral foot pain at the bottom of your feet for many weeks, consider plantar fasciitis (inflammation of the plantar fascia of both feet). Consider stretching of your Achilles tendon and forelegs, consider follow up with podiatry specialist, consider physical therapy consultation in follow up. Trial of [id number] orthotic inserts into your footwear. Look for an [id number] branded any drug store that is useful for treatment of plantar fasciitis, at least to try in your footwear while awaiting follow up. Recheck with your regular doctor early next week. Return to nearest emergency department or change worsening symptoms or any concerns prior. Prescriptions: No Action benzonatate 100 mg capsule 100 mg PO TID PRN (Reason: cough) Qty: 20 0RF hydrocodone-acetaminophen 5-325 mg tablet 1 tab PO Q6H PRN (Reason: pain) Qty: 10 0RF Referrals: Mary Powell MD [Primary Care Provider, Internal Medicine] Vinod Rene MD [Physician, Orthopedics] Stand Alone Forms: Patient Portal/API
[2025-02-21 22:51] VITALS: BP 142/75; PULSE 60; RESP 16; O2SAT 100
== END 2025-02-21 22:51 | disposition home or self-care (01) ==
PROVIDERS: Emergency Medicine; Emergency Provider Emergency Medicine; PCP Internal Medicine
DX: M79.672 Pain in left foot (principal); M79.671 Pain in right foot
CPT/HCPCS: 80048; 85025; 99281; 99283

== ENCOUNTER → 2025-03-10 11:33 | Outpatient (CLI) | payer MEDICARE, OTHER, SELFPAY ==
--- NOTE | 2025-03-10 11:36 | DI.ECHO.S_ITS ---
[facility] : : [id number] : : [place] : : [id number] : : Phone: [phone] Echocardiogram Report + + :Name: MARY GRIJALVA Study Date: 03/10/2025 Height: 63 in : :[facility] ReadingLocation: Weight: 158 lb : : Gender: Female BSA: 1.7 m2 : :: 1945 Age: 79 yrs BP: 140/80 mmHg: :Reason For Study: Hypertension : :Ordering Physician: Zack, : :Hilario ZAYAS Performed By: Flex Esparza : :Referring: Hilario Dixon MD : + + Interpretation Summary 1) Normal left ventricular thickness, size, wall motion, and systolic function (EF 60-65%). 2) Normal right ventricular size and function. 3) There is mild aortic regurgitation. 4) No prior Echo available for comparison. Procedure: A two-dimensional transthoracic echocardiogram with color flow and Doppler was performed. The study quality was technically adequate. There is no prior echocardiogram noted for this patient. The patient was in a bradycardic rhythm during the exam. Left Ventricle: The left ventricle is normal in size and wall thickness. Left ventricular systolic function is normal. The ejection fraction is estimated to be 60-65%. There are no focal wall motion abnormalities. Diastolic function is indeterminate. Right Ventricle: The right ventricle is normal in size and function. Atria: The left atrial size is normal. Right atrial size is normal. There is no Doppler evidence for an interatrial shunt. Mitral Valve: The mitral valve leaflets appear to open well. There is no mitral valve stenosis. There is trace mitral regurgitation. Aortic Valve: The aortic valve is trileaflet. The aortic valve opens well. There is no aortic valve stenosis. There is mild aortic regurgitation. There is an eccentric jet of aortic insufficiency directed against the anterior mitral leaflet. Tricuspid Valve: The tricuspid valve is not well visualized, but is grossly normal. There is mild tricuspid regurgitation. The right ventricular systolic pressure is estimated to be at least 26 mmHg based on an estimated right atrial pressure of 3 mm Hg. Pulmonic Valve: The pulmonic valve is not well seen, but is grossly normal. There is trace pulmonic regurgitation. Great Vessels: The aortic root is normal size. The ascending aorta is normal in size. The aortic arch could not be visualized. The pulmonary artery is normal size. The IVC is of normal diameter and collapses greater than 50% with a sniff. This suggests a low right atrial pressure of 3 mm Hg. Pericardium/ Pleura There is no pericardial effusion. MMode/2D Measurements & Calculations LVIDd: 4.2 cm LVOT diam: 2.0 cm LVIDs: 2.3 cm Ao root diam: 3.1 cm FS: 45.5 % asc Aorta Diam: 3.6 cm IVSd: 0.88 cm LVPWd: 0.93 cm LV frey. diameter/BSA (cm/m^2): 2.4 LV sys. diameter/BSA (cm/m^2): 1.3 LA A2 area: 17.9 cm2 RA long axis: 4.6 cm LA A4 area: 19.6 cm2 RA area: 10.4 cm2 LA length (vol): 5.5 cm RA vol: 19.7 ml LA vol: 53.8 ml RA : 11.3 ml/m2 LA vol index: 30.7 ml/m2 IVC diam: 1.7 cm RVD1 (basal): 2.7 cm RVD2 (mid): 2.4 cm TAPSE: 1.9 cm Doppler Measurements & Calculations Ao V2 max: 144.0 cm/sec LVOT Max Mitesh: 145.0 cm/sec Ao V2 mean: 112.4 cm/sec LV V1 max P.4 mmHg Ao max P.3 mmHg LV V1 VTI: 35.0 cm Ao mean P.4 mmHg ROGELIO(I,D): 3.0 cm2 Ao V2 VTI: 35.6 cm ROGELIO(V,D): 3.0 cm2 sev ratio: 0.98 ROGELIO indexed to BSA (cm^2/m^2): 1.7 AI P1/2t: 651.4 msec AI dec slope: 150.8 cm/sec2 MV E max mitesh: 86.1 cm/sec TR max mitesh: 237.6 cm/sec MV A max mitesh: 50.0 cm/sec TR max P.6 mmHg MV E/A: 1.7 PA V2 max: 77.7 cm/sec Med Peak E' Mitesh: 7.4 cm/sec PA V2 mean: 59.3 cm/sec E/E' med: 11.6 PA mean P.5 mmHg Lat Peak E' Mitesh: 5.8 cm/sec PA pr(Accel): 25.1 mmHg E/E' lat: 14.9 E/e' average: 13.2 MV dec time: 0.22 sec SV(LVOT): 105.9 ml Qp/Qs (V,Ao): 1.0/7.7 Qp/Qs (V,LVOT): 1.0/3.2 Reading Physician:04:45 PM
== END ==
LOC: ECHO 11:36
PROVIDERS: Referring Provider Internal Medicine Cardiovascular Disease; Visit Provider Internal Medicine Cardiovascular Disease
DX: I08.2 Rheumatic disorders of both aortic and tricuspid valves (principal); I10 Essential (primary) hypertension; R55 Syncope and collapse
CPT/HCPCS: 93306